=== PATIENT | male | born 1990 | race Two or more races ===

== ENCOUNTER 2020-09-17 18:59 | Emergency (ER) | payer SELFPAY ==
[~2020-09-17] VITALS: Ht 170.2 cm; Wt 86.2 kg
[2020-09-17] MEDS ORDERED: SODIUM CHLORIDE 0.9% 1,000 ML IV ONE (19:30)
[2020-09-17] MEDS ORDERED: ONDANSETRON HCL 4 MG/2 ML VIAL IV ONE (19:30)
[2020-09-17] MEDS ORDERED: LORazepam 2MG/ML-1ML VIAL IV ONE (19:30)
[2020-09-17 19:59] LABS: Basophils # (auto) 0 10 ^3/uL (0-0.2); Basophils % (auto) 1.1 % (0.0-2.0); Eosinophils # (auto) 0 10 ^3/uL (0-0.8); Eosinophils % (auto) 0.1 % (0.0-7.0); Hematocrit 50.7 % (41.0-53.0); Hemoglobin 17.4 g/dL (13.5-17.5); Lymphocytes # (auto) 1.5 10 ^3/uL (0.4-5.4); Mean Corpuscular Hemoglobin 32.6 pg (28.0-32.0); Mean Corpuscular Hgb Conc. 34.4 g/dL (32.0-36.0); Mean Corpuscular Volume 94.7 fL (80.0-100.0); Monocytes # (auto) 0.3 10 ^3/uL (0-1.3); Monocytes % (auto) 6.3 % (0.0-12.0); Neutrophils # (auto) 2.5 10 ^3/uL (1.6-8.6); Neutrophils % (auto) 57.5 % (37.0-80.0); Nucleated Red Blood Cells % 0.6 %; Red Blood Cells 5.35 10^6/uL (4.5-5.90); Red Cell Distribution Width 12.6 % (11.8-14.3); White Blood Cell 4.3 10^3/uL (4.4-10.8)
[2020-09-17 20:00] VITALS: BP 130/85
[2020-09-17 20:16] LABS: Albumin 4.6 g/dL (3.4-5.0); BUN/Creatinine Ratio 13.9; Calcium 8.6 mg/dL (8.5-10.1); Potassium 3.9 mmol/L (3.5-5.1)
[2020-09-17 20:23] LABS: Bilirubin, Total 1.3 mg/dL (0.2-1.0)
== END 2020-09-17 21:14 | disposition home or self-care (01) ==
LOC: ER 18:59
DX: F10.230 Alcohol dependence with withdrawal, uncomplicated (principal); R07.89 Other chest pain; R11.2 Nausea with vomiting, unspecified
CPT/HCPCS: 36415; 80053; 80320; 85025; 93005; 96361; 96374; 96375; 99284; J2060; J2405; J7030

== ENCOUNTER 2020-11-09 10:20 | Emergency (ER) | payer SELFPAY ==
[~2020-11-09] VITALS: Ht 182.9 cm; Wt 90.7 kg
[2020-11-09] MEDS ORDERED: THIAMINE 100mg/ml INJ (200mg/2ml VIAL) IV ONE (10:30)
[2020-11-09] MEDS ORDERED: SODIUM CHLORIDE 0.9% 1,000 ML IV ONE ×2 (10:30)
[2020-11-09 10:32] VITALS: BP 118/68
[2020-11-09 10:53] LABS: Basophils # (auto) 0 10 ^3/uL (0-0.2); Basophils % (auto) 0.8 % (0.0-2.0); Eosinophils # (auto) 0 10 ^3/uL (0-0.8); Eosinophils % (auto) 0.4 % (0.0-7.0); Hematocrit 46.1 % (41.0-53.0); Hemoglobin 15.6 g/dL (13.5-17.5); Lymphocytes # (auto) 2.2 10 ^3/uL (0.4-5.4); Lymphocytes % (auto) 40.4 % (10.0-50.0); Mean Corpuscular Volume 91.4 fL (80.0-100.0); Monocytes # (auto) 0.4 10 ^3/uL (0-1.3); Monocytes % (auto) 7.8 % (0.0-12.0); Neutrophils # (auto) 2.8 10 ^3/uL (1.6-8.6); Neutrophils % (auto) 50.6 % (37.0-80.0); Nucleated Red Blood Cells % 0.2 %; Red Blood Cells 5.04 10^6/uL (4.5-5.90); Red Cell Distribution Width 13.4 % (11.8-14.3); White Blood Cell 5.5 10^3/uL (4.4-10.8)
[2020-11-09 13:39] LABS: Potassium 3.8 mmol/L (3.5-5.1)
[2020-11-09 13:45] LABS: Albumin 3.8 g/dL (3.4-5.0); BUN/Creatinine Ratio 15.6; Calcium 8.4 mg/dL (8.5-10.1)
[2020-11-09 13:59] LABS: Bilirubin, Total 0.8 mg/dL (0.2-1.0); Total Protein 7.9 g/dL (6.4-8.2)
== END 2020-11-09 16:47 | disposition left against medical advice (07) ==
LOC: ER 10:20 → EDBD 10:20 → ER 16:47
DX: F10.129 Alcohol abuse with intoxication, unspecified (principal); I10 Essential (primary) hypertension; Y90.8 Blood alcohol level of 240 mg/100 ml or more
CPT/HCPCS: 36415; 80053; 80320; 85025

== ENCOUNTER 2021-04-18 13:11 | Inpatient (IN) | payer OTHER ==
[~2021-04-18] VITALS: Ht 167.6 cm; Wt 95.4 kg
[2021-04-18] MEDS ORDERED: SODIUM CHLORIDE 0.9% 1,000 ML IV ONE ×2 (15:00→18:45)
[2021-04-18] MEDS ORDERED: LORazepam 2MG/ML-1ML VIAL IV ONE ×2 (15:00→20:30)
[2021-04-18] MEDS ORDERED: PANTOPRAZOLE 80 MG in SODIUM CHL 0.9% 100 ML IV ONE (15:30)
[2021-04-18] MEDS ORDERED: PANTOPRAZOLE 40mg/50ML NS AE 50 ML IV ONE (15:30)
[2021-04-18] MEDS ORDERED: LIDOCAINE VISCOUS 2% 15ML UD PO ONE (15:45)
[2021-04-18] MEDS ORDERED: ALUM & MAG HYDROX-SIMETH LIQ(MAALOX) 30 ML PO ONE (15:45)
[2021-04-18] MEDS ORDERED: FAMOTIDINE (10MG/ML) 2ML VL IV ONE (15:45)
[2021-04-18] MEDS ORDERED: ONDANSETRON HCL 4 MG/2 ML VIAL IV ONE (15:45)
[2021-04-18] MEDS ORDERED: chlordiazePOXIDE HCL 25 MG CAP PO ONE ×2 (16:00→21:30)
[2021-04-18 16:51] LABS: Basophils # (auto) 0.1 10 ^3/uL (0-0.2); Basophils % (auto) 0.8 % (0.0-2.0); Eosinophils # (auto) 0 10 ^3/uL (0-0.8); Hematocrit 36.2 % (41.0-53.0); Hemoglobin 12.7 g/dL (13.5-17.5); Lymphocytes # (auto) 2.8 10 ^3/uL (0.4-5.4); Lymphocytes % (auto) 32.3 % (10.0-50.0); Mean Corpuscular Hemoglobin 30.1 pg (28.0-32.0); Mean Corpuscular Volume 85.9 fL (80.0-100.0); Monocytes # (auto) 0.5 10 ^3/uL (0-1.3); Monocytes % (auto) 5.4 % (0.0-12.0); Neutrophils # (auto) 5.3 10 ^3/uL (1.6-8.6); Neutrophils % (auto) 61.5 % (37.0-80.0); Nucleated Red Blood Cells % 0.5 %; Red Blood Cells 4.22 10^6/uL (4.5-5.90); White Blood Cell 8.6 10^3/uL (4.4-10.8)
[2021-04-18 17:07] LABS: INR 0.99 (0.9-1.15); Partial Thromboplastin Time 27.6 sec (23.6-33.0)
[2021-04-18 17:08] LABS: Albumin 3.6 g/dL (3.4-5.0); Calcium 7.9 mg/dL (8.5-10.1); Potassium 3.8 mmol/L (3.5-5.1)
[2021-04-18 17:17] LABS: BUN/Creatinine Ratio 33.3; Bilirubin, Total 0.4 mg/dL (0.2-1.0); Total Protein 7.2 g/dL (6.4-8.2)
[2021-04-18] MEDS ORDERED: ONDANSETRON HCL 4 MG/2 ML VIAL IV PRN (18:15)
[2021-04-18] MEDS: SODIUM CHLORIDE 0.9% 1,000 ML IV SCH (18:45)
[2021-04-18] MEDS ORDERED: LORazepam 2MG/ML-1ML VIAL ONE (20:00)
[2021-04-18 22:00] VITALS: BP 150/94
[2021-04-18] MEDS: PANTOPRAZOLE 40 MG/10 ML VIAL INJ IV SCH (22:21)
[2021-04-19] MEDS: METOPROLOL TARTRATE 50 MG TAB PO SCH ×2 (00:16→11:21)
[2021-04-19] MEDS: chlordiazePOXIDE HCL 25 MG CAP PO PRN ×3 (02:34→14:10)
[2021-04-19 04:46] VITALS: BP 143/83
[2021-04-19 05:35] LABS: Basophils # (auto) 0.1 10 ^3/uL (0-0.2); Basophils % (auto) 0.4 % (0.0-2.0); Eosinophils # (auto) 0 10 ^3/uL (0-0.8); Eosinophils % (auto) 0.1 % (0.0-7.0); Hematocrit 28.1 % (41.0-53.0); Hemoglobin 9.8 g/dL (13.5-17.5); Lymphocytes # (auto) 2.7 10 ^3/uL (0.4-5.4); Lymphocytes % (auto) 22.5 % (10.0-50.0); Mean Corpuscular Hemoglobin 30.2 pg (28.0-32.0); Mean Corpuscular Hgb Conc. 34.7 g/dL (32.0-36.0); Mean Corpuscular Volume 86.8 fL (80.0-100.0); Monocytes # (auto) 0.9 10 ^3/uL (0-1.3); Monocytes % (auto) 7.7 % (0.0-12.0); Neutrophils # (auto) 8.3 10 ^3/uL (1.6-8.6); Neutrophils % (auto) 69.3 % (37.0-80.0); Nucleated Red Blood Cells % 0.1 %; Red Blood Cells 3.24 10^6/uL (4.5-5.90); Red Cell Distribution Width 11.8 % (11.8-14.3)
[2021-04-19 05:46] LABS: BUN/Creatinine Ratio 27.8; Calcium 7.8 mg/dL (8.5-10.1); Potassium 3.9 mmol/L (3.5-5.1)
[2021-04-19 05:49] LABS: Total Protein 6.1 g/dL (6.4-8.2)
[2021-04-19] MEDS: SODIUM CHLORIDE 0.9% 1,000 ML IV SCH (07:35)
[2021-04-19] MEDS: PANTOPRAZOLE 40 MG/10 ML VIAL INJ IV SCH (09:07)
[2021-04-19] MEDS ORDERED: FOLIC ACID 1 MG, MULTIPLE VITAMIN 10 ML, MAGNESIUM SULF SDV 50% 8 MEQ, THIAMINE INJ 100... INJ SCH ×5 (12:00)
[2021-04-19] MEDS ORDERED: SUCRALFATE 1 GM/10 ML ORAL SUSP PO SCH (17:00)
== END 2021-04-19 14:37 | disposition left against medical advice (07) | DRG 242 ==
LOC: EDBD 13:11 → ER 13:11 → OVERFLOW 18:03 → TELE-WESTW 21:56 → WEST WING 22:00 → TELE-WESTW 22:35
PROVIDERS: ADMIT Nurse Practitioner; ATTEND Family Medicine
DX: I85.01 Esophageal varices with bleeding (principal); E44.0 Moderate protein-calorie malnutrition; E86.0 Dehydration; F41.9 Anxiety disorder, unspecified; I10 Essential (primary) hypertension; Z20.822 Contact with and (suspected) exposure to COVID-19; D62 Acute posthemorrhagic anemia; Z53.29 Procedure and treatment not carried out because of patient's decision for other reasons; F10.139 Alcohol abuse with withdrawal, unspecified; F10.129 Alcohol abuse with intoxication, unspecified; Z82.49 Family history of ischemic heart disease and other diseases of the circulatory system; Z71.41 Alcohol abuse counseling and surveillance of alcoholic; Z68.33 Body mass index [BMI] 33.0-33.9, adult; Y90.8 Blood alcohol level of 240 mg/100 ml or more; E88.09 Other disorders of plasma-protein metabolism, not elsewhere classified
CPT/HCPCS: 36415; 71045; 74176; 80053; 80320; 82270; 83690; 83735; 84484; 85025; 85384; 85610; 85730; 86850; 86900; 86901; 87426; 93005; 96361; 96374; 96375; C9113; G0378; J2405; J3490

== ENCOUNTER 2022-11-01 08:37 | Emergency (ER) | payer MEDICAID, OTHER ==
[~2022-11-01] VITALS: Ht 170.2 cm; Wt 71.1 kg
[2022-11-01] MEDS ORDERED: THIAMINE 100mg/ml INJ (200mg/2ml VIAL) IV ONE (08:45)
[2022-11-01] MEDS ORDERED: SODIUM CHLORIDE 0.9% 1,000 ML IV ONE ×2 (08:45)
[2022-11-01 09:05] LABS: Urine Bacteria FEW /hpf (None Seen); Urine Blood Negative /uL (Negative); Urine Clarity HAZY (Clear); Urine Color Yellow (Yellow); Urine Mucus MANY (None Seen); Urine Protein, UAD 2+ (Negative); Urine Specific Gravity 1.034 (1.001-1.035); Urine WBC 20 /hpf (0 - 3)
[2022-11-01 09:26] LABS: Basophils # (auto) 0.1 10 ^3/uL (0-0.2); Basophils % (auto) 0.8 % (0.0-2.0); Eosinophils # (auto) 0.1 10 ^3/uL (0-0.8); Eosinophils % (auto) 1.1 % (0.0-7.0); Hematocrit 53.1 % (41.0-53.0); Hemoglobin 17.6 g/dL (13.5-17.5); Lymphocytes # (auto) 2.6 10 ^3/uL (0.4-5.4); Lymphocytes % (auto) 34.5 % (10.0-50.0); Mean Corpuscular Hemoglobin 29.6 pg (28.0-32.0); Mean Corpuscular Hgb Conc. 33.1 g/dL (32.0-36.0); Mean Corpuscular Volume 89.5 fL (80.0-100.0); Monocytes # (auto) 0.8 10 ^3/uL (0-1.3); Monocytes % (auto) 10.4 % (0.0-12.0); Neutrophils % (auto) 53.2 % (37.0-80.0); Nucleated Red Blood Cells % 0.1 %; Red Blood Cells 5.94 10^6/uL (4.5-5.90); Red Cell Distribution Width 13.5 % (11.8-14.3); White Blood Cell 7.6 10^3/uL (4.4-10.8)
[2022-11-01 09:28] LABS: Amphetamine Screen, Urine Pos (NEGATIVE); Benzodiazephine Screen, Urine Pos (NEGATIVE)
[2022-11-01 09:29] LABS: Barbiturate Scree,Urine Neg (NEGATIVE); Cannabinoid Screen, Urine Neg (NEGATIVE); Cocaine Screen, Urine Neg (NEGATIVE); Opiate Scree,Urine Pos (NEGATIVE); Phencyclidine Screen, Urine Neg (NEGATIVE)
[2022-11-01] MEDS ORDERED: LORazepam 2MG/ML-1ML VIAL IV ONE (09:45)
[2022-11-01 10:22] LABS: Alanine Aminotransferase 21 U/L (7-40); Albumin 4.9 g/dL (3.2-4.8); Alkaline Phosphatase 155 U/L (46-116); Anion Gap 8.9 (5-15); Aspartate Aminotransferase 23 U/L (13-40); BUN/Creatinine Ratio 11.8 (10.0-20.0); Bilirubin, Total 0.9 mg/dL (0.2-1.0); Blood Urea Nitrogen 9 mg/dL (9-23); Calcium 9.5 mg/dL (8.5-10.1); Carbon Dioxide 30.1 mmol/L (20-30); Chloride 103 mmol/L (98-107); Glucose 122 mg/dL (74-106); Sodium 142 mmol/L (136-145)
[2022-11-01 11:01] LABS: Blood Alcohol 105.9 mg/dL (<10)
[2022-11-01 11:21] LABS: Potassium 2.8 mmol/L (3.5-5.1)
[2022-11-01] MEDS ORDERED: POTASSIUM EFFERVESENT TAB 25 MEQ PO ONE (11:30)
[2022-11-01 12:01] VITALS: PULSE 86; RESP 17; O2SAT 97
[2022-11-01 13:10] VITALS: BP 137/94; PULSE 72; RESP 19; O2SAT 98
== END 2022-11-01 13:13 | disposition home or self-care (01) ==
LOC: ER 08:37
DX: F10.239 Alcohol dependence with withdrawal, unspecified (principal); F41.9 Anxiety disorder, unspecified; F15.90 Other stimulant use, unspecified, uncomplicated; I10 Essential (primary) hypertension
CPT/HCPCS: 36415; 80053; 80307; 80320; 81001; 85025; 96361; 96374; 96375; 99284; J2060; J3411; J7030

== ENCOUNTER 2023-01-23 11:28 | Emergency (ER) | payer MEDICAID ==
[~2023-01-23 11:28] MED LIST: CHL25C GT; FOLITAB22 PO; THIA100T10 PO
== END 2023-01-23 11:39 | disposition left against medical advice (07) ==
LOC: ER 11:28
DX: R45.1 Restlessness and agitation (principal); Z53.21 Procedure and treatment not carried out due to patient leaving prior to being seen by health care provider

== ENCOUNTER 2024-10-15 01:13 | Emergency (ER) | payer MEDICAID ==
[~2024-10-15] VITALS: Ht 170.2 cm; Wt 91.2 kg
[2024-10-15 01:15] VITALS: BP 141/87; PULSE 129; RESP 20; TEMP 98.1
[2024-10-15] MEDS ORDERED: METHADONE HCL 10 MG TAB PO ONE (01:45)
--- NOTE | 2024-10-15 01:54 | ED.PDOC ---
History of Present Illness HPI Comments This is a 34 year-old male, with a PMHX of HTN, who presents to the ED with a chief complaint of chest pain as of today. Patient states chest pain is "sharp", exacerbated with breaths, with no associated relieving factors. Patient reports taking Methadone as prescribed but states he has been unable to get a refill due to Therapist on vacation. Patient reports having no Methadone for X2 days. Patient has no further complaints at this time and otherwise denies further associated symptoms of cough, SOB, tremors, dizziness, N/V, or fever. Chief Complaint: Withdrawal Time Seen by MD: 01:26 Reviewed Notes: Medications, Allergies Allergies: Coded Allergies: No Known Drug Allergy (Verified Allergy, Unknown, 01/02/23) Uncoded Allergies: ALMONDS (Allergy, Unknown, 01/02/23) Home Meds Active Scripts Folic Uwoz-Ithohwjooi-Ftchxdja (Folbic) Tab, 1 TAB PO DAILY for 30 Days, #30 TAB 3 Refills Prov:SVITLANA NELSON MD 11/24/21 Folic Eaxi-Tycfwsrqwa-Sdsepeww (Folbic) Tab, 1 TAB PO DAILY, #90 TAB 1 Refill Prov:SVITLANA NELOSN MD 11/24/21 Thiamine Hcl (VITAMIN B-1) 100 Mg Tb, 100 MG PO BID for 30 Days, #60 TAB Prov:SVITLANA NELSON MD 11/24/21 Chlordiazepoxide Hcl (Librium) 25 Mg Cp, 25 MG GT TID for 5 Days, #15 CAP Prov:SVITLANA NELSON MD 11/24/21 Information Source: Patient Mode of Arrival: Ambulatory Severity: Moderate Timing: Hours Duration: Since onset Associated signs and symptoms Chest Pain Past Medical History PAST MEDICAL HISTORY: HTN Surgical History: Denies all surgeries Family History Family History: Family hx of HTN Social History Smoker: Non-Smoker Alcohol: Heavy Drugs: Denies Drug Use Lives In: Home Constitutional: denies: chills, diaphoresis, fatigue, fever, malaise, sweats, weakness, others EENTM: denies: blurred vision, double vision, ear bleeding, ear discharge, ear drainage, ear pain, ear ringing, eye pain, eye redness, hearing loss, mouth pain, mouth swelling, nasal discharge, nose bleeding, nose congestion, nose pain, photophobia, tearing, throat pain, throat swelling, voice changes, others Respiratory: denies: cough, hemoptysis, orthopnea, SOB at rest, shortness of breath, SOB with excertion, stridor, wheezing, others Cardiovascular: reports: chest pain; denies: dizzy spells, diaphoresis, Dyspnea on exertion, edema, irregular heart beat, left arm pain, lightheadedness, palpitations, PND, syncope, others Gastrointestinal: denies: abdomen distended, abdominal pain, blood streaked bowels, constipated, diarrhea, dysphagia, difficulty swallowing, hematemesis, melena, nausea, poor appetite, poor fluid intake, rectal bleeding, rectal pain, vomiting, others Genitourinary: denies: burning, dysuria, flank pain, frequency, hematuria, incontinence, penile discharge, penile sore, pain, testicle pain, testicle swelling, urgency, others Neurological: denies: dizziness, fainting, headache, left sided numbness, left sided weakness, numbness, paresthesia, pre-existing deficit, right sided numbness, right sided weakness, seizure, speech problems, tingling, tremors, weakness, others Musculoskeletal: denies: back pain, gout, joint pain, joint swelling, muscle pain, muscle stiffness, neck pain, others Integumetry: denies: bruises, change in color, change in hair/nails, dryness, laceration, lesions, lumps, rash, wounds, others Allergic/Immunocompromised: denies: Difficulty Healing, Frequent Infections, Hives, Itching, others Hematologic/Lymphatic: denies: anemia, blood clots, easy bleeding, easy bruising, swollen glands, others Endocrine: denies: excessive hunger, excessive sweating, excessive thirst, excessive urination, flushing, intolerance to cold, intolerance to heat, unexplained weight gain, unexplained weight loss, others Psychiatric: denies: anxiety, bipolar disorder, depression, hopeless, panic disorder, schizophrenia, sleepless, suicidal, others All Other Systems: Reviewed and Negative Physical Exam Exam Comments Patient appears diaphoretic and anxious upon evaluation General Appearance: Mild Distress, Normal HEENT: Normal ENT Inspection, Pharynx Normal, TMs Normal Neck: Full Range of Motion, Non-Tender, Normal, Normal Inspection Respiratory: Chest Non-Tender, Lungs Clear, No Accessory Muscle Use, No Respiratory Distress, Normal Breath Sounds Cardiovascular: No Edema, No JVD, No Murmur, No Gallop, Normal Peripheral Puls es, Regular Rate/Rhythm Breast Exam: Deferred Gastrointestinal: No Organomegaly, Non Tender, No Pulsatile Mass, Normal Bowel Sounds, Soft Genitalia: Deferred Pelvic: Deferred Rectal: Deferred Extremities: No calf tenderness, Normal capillary refill, Normal inspection, Normal range of motion, Non-tender, No pedal edema Musculoskeletal : Apperance: Normal Neurologic: Alert, 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 Was a procedure done?: No Differential Dx Considerations may include: GERD, Anxiety, Panic Disorder, Chest Wall Pain, Hypertension X-Ray, Labs, Meds, VS Vital Signs Date Time Temp Pulse Resp B/P (MAP) Pulse Ox O2 Delivery O2 Flow Rate FiO2 10/15/24 01:15 98.1 129 20 141/87 98.1 X-Ray, Labs, Meds, VS Comment Imaging was reviewed by this provider, there is no obvious pathological or acute disease process. Pending radiology review Labs were reviewed by this provider, no abnormalities Vital signs reviewed by this provider, clinically stable Time of 1ST Reevaluation: 02:02 Reevaluation 1ST: Unchanged Patient Education/Counseling: Diagnosis, Treatment, Need For Follow Up (Follow up with rehab center tomorrow as scheduled) Family Education/Counseling: No Family Present SEPSIS Sepsis Screen Date sepsis recognized/suspect: Oct 15, 2024 Time Sepsis recognized/suspect: 0117 Recent Procedure: No On Antibiotic Therapy: No Respiratory Rate >20: No Heart Rate >90: No Temp<36 C (96.8 F) or >38.3 C: No SBP <90 or MAP <65 mmHG: No New Acute Mental Status Change: No Is the patient on CPAP, BIPAP,: No Vital Signs Date Time Temp Pulse Resp B/P (MAP) Pulse Ox O2 Delivery O2 Flow Rate FiO2 10/15/24 01:15 98.1 129 20 141/87 98.1 Departure 1 Departure Time of Disposition: 03:21 Impression: Primary Impression: Opiate withdrawal Disposition: HOME / SELF CARE / HOMELESS Condition: Stable Discharged With: Self Critical Care Note Critical Care Time?: No Stability Stability form required: No Heart Score Heart Score: Heart Score Response (Comments) Value History Slightly Suspicious 0 EKG N/A 0 Age <45 0 Risk Factors 1 or 2 risk factors 1 Troponin N/A 0 Total 1 I personally scribed for SOUTH LOPEZ ([email or web address]) on 10/15/24 at 01:54. Electronically submitted by Cristel GomezSH[facility]). SOUTH LOPEZ Oct 15, 2024 01:54
== END 2024-10-15 06:00 | disposition home or self-care (01) ==
LOC: ER 01:13
DX: F11.23 Opioid dependence with withdrawal (principal); I10 Essential (primary) hypertension

== ENCOUNTER 2024-10-23 07:07 | Emergency (ER) | payer MEDICAID ==
[~2024-10-23] VITALS: Ht 170.2 cm; Wt 100.0 kg
[2024-10-23 07:30] VITALS: PULSE 144; RESP 20; O2SAT 97
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
[2024-10-23] MEDS: METHADONE HCL 10 MG TAB PO ONE ×2 (07:59→08:00)
[2024-10-23 08:00] VITALS: TEMP 97.9
[2024-10-23 08:16] LABS: Urine Protein, UAD Negative (Negative)
[2024-10-23] MEDS: SODIUM CHLORIDE 0.9% 1,000 ML IV ONE (10:07)
[2024-10-23 12:44] VITALS: BP 109/57; PULSE 112; RESP 16; O2SAT 91
--- NOTE | 2024-10-23 18:33 | ECG ---
[facility] Test Date: 2024-10-23 Test Time: 07:11:10 Pat Name: CANDACE SOLORZANO Department: [facility] ED Patient ID: [id number] Room: Gender: M Gear Machine Operator General: KALA : 1990 Requested By: SVITLANA NELSON Order Number: [id number] Reading MD: Apolinar Peraza Measurements Intervals [place] Rate: 133 P: 50 OR: 139 QRS: 18 QRSD: 72 T: 48 QT: 323 QTc: 481 Interpretive Statements Sinus tachycardia Ventricular premature complex Borderline prolonged QT interval Electronically Signed On 10-23-2024 22:32:29 PDT by Apolinar Peraza Please click the below link to view image of tracing.
== END 2024-10-23 13:21 | disposition home or self-care (01) ==
LOC: ER 07:07 → EDBD 07:07 → ER 13:21
DX: F11.23 Opioid dependence with withdrawal (principal); F17.290 Nicotine dependence, other tobacco product, uncomplicated; I10 Essential (primary) hypertension; F10.90 Alcohol use, unspecified, uncomplicated; Z79.899 Other long term (current) drug therapy; Y90.9 Presence of alcohol in blood, level not specified
CPT/HCPCS: 81001; 93005; 96360; 96361; 99285; J7030